=== PATIENT | female | born 1955 | race Caucasian/White ===

== ENCOUNTER 2017-01-07 14:19 | Emergency (ER) | payer BC ==
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
[2017-01-07 16:02] VITALS: BP 151/90
== END 2017-01-07 16:02 | disposition home or self-care (01) ==
LOC: ER 14:19
DX: M25.551 Pain in right hip (principal); V89.2XXA Person injured in unspecified motor-vehicle accident, traffic, initial encounter